=== PATIENT | female | born 1955 | race Hispanic/Latino ===

== ENCOUNTER 2025-03-06 08:11 | Day surgery (SDC) | payer OTHER ==
[~2025-03-06] VITALS: Ht 152.4 cm; Wt 59.0 kg
[2025-03-06] VITALS (15 sets, daily range): BP systolic 96–146; BP diastolic 61–82; PULSE 50–69; RESP 12–18; TEMP 97.1–98.2
[2025-03-06] MEDS: 0.9%NACL 1000ML 1,000 ML IV ONE (09:27)
[2025-03-06] MEDS ORDERED: SUCCINYLCHOLINE CHLORIDE 20 MG/ML 10 ML VIAL ONE (11:43)
[2025-03-06] MEDS ORDERED: GLYCOPYRROLATE 0.2 MG/ML 5 ML VIAL ONE (11:43)
[2025-03-06] MEDS: INDOMETHACIN 100 MG SUPP.RECT RC ONE (11:53)
== END 2025-03-06 14:20 | disposition home or self-care (01) ==
LOC: DAH 08:11 → ENDO 08:11
PROVIDERS: ATTEND Internal Medicine
DX: K80.50 Calculus of bile duct without cholangitis or cholecystitis without obstruction (principal); K29.60 Other gastritis without bleeding; K31.A0 Gastric intestinal metaplasia, unspecified
CPT/HCPCS: 43239; 43262; 43264; 43275; 74328; J3010; J0330; J7030 ×2; J2704; J2405; J3490; A4215 ×2; A4223; A4657 ×2; A7002; A4222; A4221; A4663; A4606; C1769; C1773; 74330; 76000